=== PATIENT | female | born 1960 | race Caucasian/White ===

== ENCOUNTER → 2019-02-03 | Outpatient (CLI) | payer BC ==
[~2019-02-03] MED LIST: ALBU90OI61; ATOM40; CEPH500 PO; CITA20 PO; CRUTCH3 USE; CYCL10 PO; FEXO180; FLUC150A PO; FLUO20; LEVSOD100 PO; LORA1 PO; NAPR500 PO; NAPR550 PO; OXYACE5T PO; OXYC10ER; RXCYCL10 PO; RXLORA1 PO; RXNAPNA550 PO; STATIN; TRAM50 PO; TRAZ100
[2019-02-07 16:07] LABS: HPV 16 Negative (Negative); HPV 18 Negative (Negative); HPV OTHER HR TYPES Negative (Negative)
== END | disposition home or self-care (01) ==
LOC: LAB SHORT 16:08 → LAB 16:08
PROVIDERS: Internal Medicine
DX: Z01.419 Encounter for gynecological examination (general) (routine) without abnormal findings (principal); Z12.4 Encounter for screening for malignant neoplasm of cervix
CPT/HCPCS: 87624; G0145

== ENCOUNTER 2020-10-22 17:29 | Emergency (ER) | payer OTHER ==
[~2020-10-22] VITALS: Ht 157.5 cm; Wt 54.9 kg
[2020-10-22] MEDS ORDERED: Prednisone20 MG PO (19:25)
[2020-10-22] MEDS ORDERED: ALBU90OI INH (19:25)
== END 2020-10-22 19:57 | disposition home or self-care (01) ==
LOC: ER 17:29
DX: J44.1 Chronic obstructive pulmonary disease with (acute) exacerbation (principal); F17.210 Nicotine dependence, cigarettes, uncomplicated; Z88.2 Allergy status to sulfonamides; Z88.8 Allergy status to other drugs, medicaments and biological substances
CPT/HCPCS: 71046; 94640; 99283-25; J7512

== ENCOUNTER → 2020-11-19 | Outpatient (CLI) | payer OTHER ==
[~2020-11-19] MED LIST changes: +ALBU90OI INH; +Prednisone20 MG PO
== END ==
LOC: LAB SHORT 17:43 → LAB EV 17:43
PROVIDERS: Family Medicine
DX: F11.11 Opioid abuse, in remission (principal); Z79.899 Other long term (current) drug therapy
CPT/HCPCS: G0480

== ENCOUNTER → 2020-11-22 | Outpatient (CLI) | payer OTHER | END | disposition home or self-care (01) | LOC: LAB EV 17:04 → LAB SHORT 17:04 | PROVIDERS: Family Medicine | DX: Z51.81 Encounter for therapeutic drug level monitoring (principal); Z79.899 Other long term (current) drug therapy | CPT/HCPCS: G0480 ==

== ENCOUNTER 2021-09-11 12:36 | Day surgery (SDC) | payer OTHER ==
[~2021-09-11] VITALS: Ht 157.5 cm; Wt 116.6 kg
[~2021-09-11 12:36] MED LIST changes: +AMLO5 PO; +ATOM60 PO; +BECL25NI; +FLONASE SENSIM5.9 M1 NS; +LOSA25 PO; +OMEP20ER PO; +SUBOXONE 8 MG-1 EACH SL; +VISBIOME 112.51 EACH PO
--- NOTE | 2021-09-11 14:10 | NUR ---
09/11/21 1410 Bimal Fernandez PATIENT UP TO BATHROOM WITH SBA WITH NO COMPLICATIONS
== END 2021-09-11 14:17 | disposition home or self-care (01) ==
LOC: ORSCSDS 12:36
PROVIDERS: Internal Medicine Gastroenterology
PROC: 0DJ08ZZ Inspection of Upper Intestinal Tract, Via Natural or Artificial Opening Endoscopic (ICD-10-PCS; principal; 2021-09-11 13:45)
DX: R13.10 Dysphagia, unspecified (principal); K44.9 Diaphragmatic hernia without obstruction or gangrene; K22.2 Esophageal obstruction; B19.20 Unspecified viral hepatitis C without hepatic coma; F17.210 Nicotine dependence, cigarettes, uncomplicated; Z79.899 Other long term (current) drug therapy
CPT/HCPCS: J2704; J7120

== ENCOUNTER 2021-12-22 21:48 | Observation (INO) | payer OTHER ==
[~2021-12-22] VITALS: Ht 157.5 cm; Wt 53.1 kg
[~2021-12-22 21:48] MED LIST changes: +NARCAN4 M1
[2021-12-22 23:23] LABS: BASOPHILS ABSOLUTE AUTO 0.03 K/mm3 (0.00-0.23); BASOPHILS PERCENT AUTO 1 % (0-2); EOSINOPHILS ABSOLUTE AUTO 0.22 K/mm3 (0.00-0.68); EOSINOPHILS PERCENT AUTO 5 % (0-6); Hemoglobin 13.2 g/dL (11.5-16.0); IMMATURE GRAN ABSOLUTE AUTO 0.03 K/mm3 (0.00-0.10); IMMATURE GRAN PERCENT AUTO 1 % (0-1); LYMPHOCYTES ABSOLUTE AUTO 1.36 K/mm3 (0.84-5.20); LYMPHOCYTES PERCENT AUTO 28 % (21-46); MONOCYTES PERCENT AUTO 10 % (4-13); Mean Corpuscular HGB Conc 32.2 g/dL (31.5-36.5); Mean Corpuscular Volume 87 fL (80-100); Mean Platelet Volume 8.2 fL (9.1-12.4); NEUTROPHILS ABSOLUTE AUTO 2.72 K/mm3 (1.96-9.15); NEUTROPHILS PERCENT AUTO 56 % (41-73); Platelet Count 374 K/mm3 (150-400); RDW Coefficient Variation 13.6 % (11.7-14.2); RDW Standard Deviation 43.6 fL (35.1-46.3); Red Blood Cell Count 4.72 M/mm3 (3.80-5.20); White Blood Cell Count 4.86 K/mm3 (4.00-11.30)
[2021-12-22 23:43] LABS: Alanine Aminotransfer (ALT/SGP 37 U/L (12-78); Albumin, Blood 3.1 g/dL (3.4-5.0); Albumin/Globulin Ratio 0.6 (0.8-1.8); Alk Phos 108 U/L (50-136); Anion Gap 5 mmol/L (6-16); Aspartate Aminotrans (AST/SGOT 30 U/L (12-37); Bilirubin, Total 0.2 mg/dL (0.1-1.0); Blood Urea Nitrogen 18 mg/dL (8-24); Bun/Creatinine Ratio 20.1 (12.0-20.0); CO2, Blood 27 mmol/L (21-32); Calcium, Blood 8.8 mg/dL (8.5-10.1); Chloride, Blood 105 mmol/L (98-108); Globulin, Blood 4.9 g/dL (2.2-4.0); Glomerular Filtration Rate >60 (60-); Glucose, Blood 103 mg/dL (70-99); Potassium, Blood 4.6 mmol/L (3.5-5.5); Sodium, Blood 137 mmol/L (136-145)
[2021-12-23 02:16] LABS: Influenza A, PCR NEGATIVE (NEGATIVE); Influenza B, PCR NEGATIVE (NEGATIVE); Resp Syncytial Virus, PCR NEGATIVE (NEGATIVE); SARS-Cov-2 (COVID-19) PCR, MMC NEGATIVE (NEGATIVE)
--- NOTE | 2021-12-23 06:28 | NUR ---
PT ARRIVED TO FLOOR FROM ER. PT A/O, DENIES DIZZINESS. ABD DISTENDED, GUARDED TO PALP. PT REP PAIN IN UPPER ABD, HERNIA NOTED, FIRM TO PALP. RESP E/O, SCATTERED WHEEZING NOTED, PT DENIES SOB. PT REP DAILY IV HEROIN USER, REP PAST USED 2/. PT ORIENTED TO ROOM/CALL LIGHT AND NPO STATUS. WILL MONITOR AND REP TO DAY RN.
--- NOTE | 2021-12-23 07:26 | NUR ---
PT SLEEPING IN BED, RESP E/U, NO DISTRESS NOTED. REPORT GIVEN TO HUMAIRA CABAN.
[2021-12-23] MEDS ORDERED: HYDR1TAB94 PO (16:27)
--- NOTE | 2021-12-23 16:55 | NUR ---
DISCHARGE SUMMARY POD0 HERNIA REPAIR, A/O X4, VSS, TOLERATING DIET, AMBULATING INDEPENDENTLYL, PAIN MANAGED c ORAL PAIN MEDICATIONS. DISCUSSED DISCHARGE INFORMATION WITH PT, ANSWERED ALL QUESTIONS AND EXPLAINED POST OP CARE TO HER SATISFACTION. PT HAD NO QUESTIONS, IV ACCESS REMOVED AND NO OTHER IV ACCESS DEVICES IN PLACE. PT CHANGED INTO HER REGULAR CLOTHES AND WAS ESCORTED OUT VIA WC TO BE PICKED UP BY FAMILY. NOTHING FOLLOWS.
--- NOTE | 2021-12-26 10:41 | NUR ---
12/26/21 1041 Heaven Mcbride VERIFICATIONS: EDIT CHART.
== END 2021-12-23 16:57 | disposition home or self-care (01) ==
LOC: ER 21:48 → SURS 21:49 → ERHOLD 21:49 → ER 12-23 01:16 → SURS 12-23 06:04
PROVIDERS: Emergency Medicine; Physician Assistant; ADMIT Surgery
PROC: 0WUF0JZ Supplement Abdominal Wall with Synthetic Substitute, Open Approach (ICD-10-PCS; principal; 2021-12-23 12:00)
DX: K43.6 Other and unspecified ventral hernia with obstruction, without gangrene (principal); F19.10 Other psychoactive substance abuse, uncomplicated; F17.200 Nicotine dependence, unspecified, uncomplicated; K21.9 Gastro-esophageal reflux disease without esophagitis; E03.9 Hypothyroidism, unspecified; I10 Essential (primary) hypertension; R60.1 Generalized edema; Z88.8 Allergy status to other drugs, medicaments and biological substances; Z91.040 Latex allergy status; Z20.822 Contact with and (suspected) exposure to COVID-19
CPT/HCPCS: 0241U; 36415; 74177; 80053; 83605; 85025; 96374; 96375; 99285-25; A9270; C1781; G0378; J0690; J1100; J1170; J2250; J2405; J2704; J3010; J7030; Q9967

== ENCOUNTER 2022-04-30 07:16 | Day surgery (SDC) | payer OTHER ==
[~2022-04-30] VITALS: Ht 157.5 cm; Wt 57.1 kg
[~2022-04-30 07:16] MED LIST changes: +FLONASE SENSIM5.9 M1; +HYDR1TAB94 PO; +INCRUSE ELLIPTA INH
[2022-04-30] MEDS ORDERED: SUBOXONE 12 MG1 EACH (08:05)
== END 2022-04-30 09:59 | disposition home or self-care (01) ==
LOC: ORSCSDS 07:16
PROVIDERS: Surgery
PROC: 0DBN8ZX Excision of Sigmoid Colon, Via Natural or Artificial Opening Endoscopic, Diagnostic (ICD-10-PCS; principal; 2022-04-30 08:45)
PROC: 0DBC8ZX Excision of Ileocecal Valve, Via Natural or Artificial Opening Endoscopic, Diagnostic (ICD-10-PCS; principal; 2022-04-30 08:45)
DX: Z12.11 Encounter for screening for malignant neoplasm of colon (principal); Z86.010 Personal history of colon polyps; K63.5 Polyp of colon; D12.0 Benign neoplasm of cecum; J44.9 Chronic obstructive pulmonary disease, unspecified; B19.20 Unspecified viral hepatitis C without hepatic coma; E78.5 Hyperlipidemia, unspecified; I10 Essential (primary) hypertension; F43.10 Post-traumatic stress disorder, unspecified; R56.9 Unspecified convulsions; E07.9 Disorder of thyroid, unspecified; K59.09 Other constipation; Z79.899 Other long term (current) drug therapy
CPT/HCPCS: 88305; J2704; J7120

== ENCOUNTER 2023-02-14 16:47 | Inpatient (IN) | payer OTHER ==
[~2023-02-14] VITALS: Ht 157.5 cm; Wt 66.4 kg
[~2023-02-14 16:47] MED LIST changes: +SUBOXONE 12 MG1 EACH
[2023-02-14 18:16] LABS: BASOPHILS ABSOLUTE AUTO 0.05 K/mm3 (0.00-0.23); BASOPHILS PERCENT AUTO 0 % (0-2); EOSINOPHILS ABSOLUTE AUTO 0.05 K/mm3 (0.00-0.68); EOSINOPHILS PERCENT AUTO 0 % (0-6); Hemoglobin 12.7 g/dL (11.5-16.0); IMMATURE GRAN ABSOLUTE AUTO 0.13 K/mm3 (0.00-0.10); IMMATURE GRAN PERCENT AUTO 1 % (0-1); LYMPHOCYTES ABSOLUTE AUTO 0.56 K/mm3 (0.84-5.20); LYMPHOCYTES PERCENT AUTO 2 % (21-46); MONOCYTES ABSOLUTE AUTO 0.97 K/mm3 (0.16-1.47); MONOCYTES PERCENT AUTO 4 % (4-13); Mean Corpuscular HGB 28.6 pg (26.0-34.0); Mean Corpuscular HGB Conc 32.6 g/dL (31.5-36.5); Mean Corpuscular Volume 88 fL (80-100); Mean Platelet Volume 8.9 fL (9.1-12.4); NEUTROPHILS ABSOLUTE AUTO 23.74 K/mm3 (1.96-9.15); NEUTROPHILS PERCENT AUTO 93 % (41-73); Platelet Count 262 K/mm3 (150-400); RDW Coefficient Variation 13.3 % (11.7-14.2); RDW Standard Deviation 42.9 fL (35.1-46.3); Red Blood Cell Count 4.44 M/mm3 (3.80-5.20)
[2023-02-14 18:36] LABS: Albumin, Blood 3.3 g/dL (3.4-5.0); Albumin/Globulin Ratio 0.8 (0.8-1.8); Bilirubin, Total 0.4 mg/dL (0.1-1.0); Bun/Creatinine Ratio 25.2 (12.0-20.0); Calcium, Blood 8.9 mg/dL (8.5-10.1); Creatinine, Blood 0.75 mg/dL (0.40-1.00); Globulin, Blood 4.2 g/dL (2.2-4.0); Potassium, Blood 4.1 mmol/L (3.5-5.5); Total Protein, Blood 7.5 g/dL (6.4-8.2)
[2023-02-14 19:24] LABS: Source, Urine Straight Cath
[2023-02-14 19:27] LABS: Appearance, Urine Clear (Clear); Bilirubin, Urine Neg (Neg); Blood, Urine 1+ (Neg); Color, Urine Yellow (P-Yellow); Glucose Qualitative, Urine Neg (Neg); Ketones, Urine Neg (Neg); Leukocyte Esterase, Urine Neg (Neg); Nitrite, Urine Neg (Neg); Protein, Urine 1+ (Neg); Urobilinogen, Urine NORM (Normal)
[2023-02-14 19:40] LABS: U Amphetamine Screen DETECTED; U Barbituate Screen Not Detected; U Benzodiazapine Screen Not Detected; U Buprenorphine Screen Not Detected; U Cannabinoids Screen Not Detected; U Cocaine Screen Not Detected; U Methadone Screen Not Detected; U Methamphetamine Screen DETECTED; U Opiates Screen Not Detected; U Oxycodone Screen Not Detected; U Phencyclidine Screen Not Detected; U Propoxyphene Screen Not Detected
[2023-02-14 19:42] LABS: Bacteria Few /hpf; Squamous Epithelial Cells Few /hpf (Few); White Blood Cells, Urine 0-2 /hpf (0-5)
[2023-02-14 19:53] LABS: Influenza A, PCR NEGATIVE (NEGATIVE); Influenza B, PCR NEGATIVE (NEGATIVE); Resp Syncytial Virus, PCR NEGATIVE (NEGATIVE); SARS-Cov-2 (COVID-19) PCR, MMC NEGATIVE (NEGATIVE)
[2023-02-15 04:55] LABS: BASOPHILS ABSOLUTE AUTO 0.03 K/mm3 (0.00-0.23); BASOPHILS PERCENT AUTO 0 % (0-2); EOSINOPHILS ABSOLUTE AUTO 0.02 K/mm3 (0.00-0.68); EOSINOPHILS PERCENT AUTO 0 % (0-6); Hematocrit 33.8 % (33.0-51.0); IMMATURE GRAN ABSOLUTE AUTO 0.08 K/mm3 (0.00-0.10); IMMATURE GRAN PERCENT AUTO 0 % (0-1); LYMPHOCYTES ABSOLUTE AUTO 1.23 K/mm3 (0.84-5.20); LYMPHOCYTES PERCENT AUTO 7 % (21-46); MONOCYTES ABSOLUTE AUTO 0.75 K/mm3 (0.16-1.47); MONOCYTES PERCENT AUTO 4 % (4-13); Mean Corpuscular HGB 28.8 pg (26.0-34.0); Mean Corpuscular HGB Conc 32.5 g/dL (31.5-36.5); Mean Corpuscular Volume 89 fL (80-100); NEUTROPHILS ABSOLUTE AUTO 16.67 K/mm3 (1.96-9.15); NEUTROPHILS PERCENT AUTO 89 % (41-73); Platelet Count 231 K/mm3 (150-400); RDW Coefficient Variation 13.5 % (11.7-14.2); RDW Standard Deviation 43.5 fL (35.1-46.3); Red Blood Cell Count 3.82 M/mm3 (3.80-5.20); White Blood Cell Count 18.78 K/mm3 (4.00-11.30)
--- NOTE | 2023-02-15 05:00 | NUR ---
SUMMARY: PATIENT ADMITTED OVERNIGHT WITH PNEUMONIA. PATIENT AOX4 BUT PRETTY DROWSY. VSS. 2L NS BOLUS GIVEN UPON ARRIVAL TO UNIT. VITALS CHECKED AFTER. HR IMPROVED AFTER BOLUS. PATIENT AMBULATED TO RESTROOM INDEPENDENTLY. O2 STABLE ON RA. NO REPORTS OF PAIN. CALL LIGHT IN REACH.
[2023-02-15 05:28] LABS: Albumin, Blood 2.6 g/dL (3.4-5.0); Albumin/Globulin Ratio 0.7 (0.8-1.8); Bilirubin, Total 0.5 mg/dL (0.1-1.0); Bun/Creatinine Ratio 19.4 (12.0-20.0); Calcium, Blood 8.4 mg/dL (8.5-10.1); Creatinine, Blood 0.72 mg/dL (0.40-1.00); Globulin, Blood 3.8 g/dL (2.2-4.0); Total Protein, Blood 6.4 g/dL (6.4-8.2)
--- NOTE | 2023-02-15 18:12 | NUR ---
SHIFT SUMMARY- PT IS A/O, PLESANT AND COOPERATIVE. SHE SLEPT FOR MOST OF THIS SHIFT. EATING AND DRINKING WELL. ECHO WAS DONE THIS SHIFT. HER BED IS IN THE LOW POSITION AND CALL LIGHT IS WITHIN REACH.
--- NOTE | 2023-02-16 06:27 | NUR ---
Shift Summary Pt very lethargic and somnolent this shift. Day shift report pt slept throughout the whole day, and pt slept throughout the night tonight. She does wake up for care and is AOx4 although still tired and lethargic. Somnolence likely related to recent drug use, see tox screen. VSS, pleasant and cooperative.
--- NOTE | 2023-02-16 10:09 | NUR ---
NOTE AWAKENS ESILY. DENIED DISCOMFORT. VOICE ROUGH, GRAVILY WITH MILD STRAIN WITH TALKING. SPEACH VERY FAST. FAST MOVING. SHE ACCIDENTLY PULLED OUT HER LEFT UE WITH CANNULA INTAct. NO BLEEDING AT SITE NOTED. RESTARTED LEFT HAND. VSS. CURRENTLY TAKING A SHOWER. REPORTED, BY ORAL HYGIENIST, THAT SHE HAS THRUSH. CONTINUE POC.
[2023-02-16 11:06] LABS: BASOPHILS ABSOLUTE AUTO 0.04 K/mm3 (0.00-0.23); BASOPHILS PERCENT AUTO 1 % (0-2); EOSINOPHILS ABSOLUTE AUTO 0.11 K/mm3 (0.00-0.68); EOSINOPHILS PERCENT AUTO 1 % (0-6); Hematocrit 39.8 % (33.0-51.0); Hemoglobin 13.2 g/dL (11.5-16.0); IMMATURE GRAN ABSOLUTE AUTO 0.03 K/mm3 (0.00-0.10); IMMATURE GRAN PERCENT AUTO 0 % (0-1); LYMPHOCYTES ABSOLUTE AUTO 0.94 K/mm3 (0.84-5.20); LYMPHOCYTES PERCENT AUTO 12 % (21-46); MONOCYTES ABSOLUTE AUTO 0.52 K/mm3 (0.16-1.47); MONOCYTES PERCENT AUTO 7 % (4-13); Mean Corpuscular HGB 28.8 pg (26.0-34.0); Mean Corpuscular HGB Conc 33.2 g/dL (31.5-36.5); Mean Corpuscular Volume 87 fL (80-100); NEUTROPHILS PERCENT AUTO 79 % (41-73); Platelet Count 272 K/mm3 (150-400); RDW Coefficient Variation 13.3 % (11.7-14.2); RDW Standard Deviation 42.3 fL (35.1-46.3); Red Blood Cell Count 4.59 M/mm3 (3.80-5.20); White Blood Cell Count 7.94 K/mm3 (4.00-11.30)
[2023-02-16 11:22] LABS: Albumin/Globulin Ratio 0.6 (0.8-1.8); Bilirubin, Total 0.4 mg/dL (0.1-1.0); Bun/Creatinine Ratio 19.9 (12.0-20.0); Calcium, Blood 9.6 mg/dL (8.5-10.1); Creatinine, Blood 0.65 mg/dL (0.40-1.00); Globulin, Blood 4.8 g/dL (2.2-4.0); Potassium, Blood 3.8 mmol/L (3.5-5.5); Total Protein, Blood 7.8 g/dL (6.4-8.2)
--- NOTE | 2023-02-16 14:29 | NUR ---
NOTE PT UP[ IN HALLWAY WALKING SHORT DISTANCES. TOLERATED WELL. OCCASIONAL COUGH. VOICE STILL SOFT AND WEAK. VSS. STARTED ON ORAL NYSTATIN FOR OBSERVED THRUSH. CONTINUE POC.
--- NOTE | 2023-02-17 05:22 | NUR ---
Shift Summary Pt AOx4, independent in room. Voice is rough and gravily. No c/o pain or nausea. Slept well t/o the night. VSS.
[2023-02-17] MEDS ORDERED: NYSTATIN100000 U10 MT (12:33)
[2023-02-17] MEDS ORDERED: Nicoderm Cq1 EAC1 TOP (12:33)
[2023-02-17] MEDS ORDERED: CEFP200 PO (12:34)
[2023-02-17] MEDS ORDERED: VISBIOME 112.51 EACH PO (12:34)
--- NOTE | 2023-02-17 14:02 | NUR ---
DISCHARGE NOTE PT DISCHARGED HOME VIA W/C ACCOMPANIED BY BODY AND FRAME MAN. IV REMOVED FROM LEFT HAND. PRESSURE DRESSING APPLIED. PERSCRIPTIONS FAXED TO [facility]. CONTINUE POC.
== END 2023-02-17 13:45 | disposition home or self-care (01) | DRG 871 ==
LOC: ER 16:47 → MEDS 21:03
PROVIDERS: Emergency Medicine; Family Medicine; Hospitalist; ADMIT Family Medicine
DX: A41.9 Sepsis, unspecified organism (principal); J18.9 Pneumonia, unspecified organism; K83.1 Obstruction of bile duct; I10 Essential (primary) hypertension; E03.9 Hypothyroidism, unspecified; I51.7 Cardiomegaly; F15.10 Other stimulant abuse, uncomplicated; K21.9 Gastro-esophageal reflux disease without esophagitis; K13.79 Other lesions of oral mucosa; J44.9 Chronic obstructive pulmonary disease, unspecified; J84.10 Pulmonary fibrosis, unspecified; R79.89 Other specified abnormal findings of blood chemistry; F17.210 Nicotine dependence, cigarettes, uncomplicated; Z20.822 Contact with and (suspected) exposure to COVID-19; Z88.2 Allergy status to sulfonamides; Z91.040 Latex allergy status; Z88.8 Allergy status to other drugs, medicaments and biological substances; Z79.899 Other long term (current) drug therapy; Z90.49 Acquired absence of other specified parts of digestive tract; Z90.710 Acquired absence of both cervix and uterus; Z98.890 Other specified postprocedural states; Z28.21 Immunization not carried out because of patient refusal; Z79.890 Hormone replacement therapy
CPT/HCPCS: 0241U; 36415; 71045; 74177; 80053; 81001; 83605; 83690; 85025; 87040; 93306; 94760; 96361; 96374-59; 96375; 99285-25; A9270; J0456; J0696; J1650; J7030; J7050; Q9967

== ENCOUNTER 2023-10-27 14:01 | Emergency (ER) | payer OTHER ==
[~2023-10-27] VITALS: Ht 157.5 cm; Wt 63.5 kg
[~2023-10-27 14:01] MED LIST changes: +CEFP200 PO; +NYSTATIN100000 U10 MT; +Nicoderm Cq1 EAC1 TOP
[2023-10-27] MEDS ORDERED: AMLODIPINE BESY10 MG PO (15:06)
[2023-10-27] MEDS ORDERED: Ventolin/Prove6.7 GM INH (15:06)
[2023-10-27] MEDS ORDERED: BUPRENORPHIN-N1 EAC1 SL (15:07)
[2023-10-27] MEDS ORDERED: SYNTHROID100 M14 PO (15:07)
[2023-10-27 15:14] LABS: BASOPHILS ABSOLUTE AUTO 0.01 K/mm3 (0.00-0.23); BASOPHILS PERCENT AUTO 0 % (0-2); EOSINOPHILS PERCENT AUTO 0 % (0-6); Hematocrit 24.4 % (33.0-51.0); Hemoglobin 7.3 g/dL (11.5-16.0); Mean Corpuscular HGB 23.5 pg (26.0-34.0); Mean Corpuscular HGB Conc 29.9 g/dL (31.5-36.5); Mean Corpuscular Volume 79 fL (80-100); Mean Platelet Volume 9.4 fL (9.1-12.4); NRBC ABSOLUTE 0.02 K/mm3 (0.00-0.02); NRBC Auto 0.4 /100 WBC (0.0-0.2); Platelet Count 313 K/mm3 (150-400); RDW Coefficient Variation 15.9 % (11.7-14.2); Red Blood Cell Count 3.11 M/mm3 (3.80-5.20); White Blood Cell Count 4.98 K/mm3 (4.00-11.30)
[2023-10-27 15:17] LABS: IMMATURE GRAN ABSOLUTE AUTO 0.03 K/mm3 (0.00-0.10); IMMATURE GRAN PERCENT AUTO 1 % (0-1); LYMPHOCYTES ABSOLUTE AUTO 0.69 K/mm3 (0.84-5.20); LYMPHOCYTES PERCENT AUTO 14 % (21-46); MONOCYTES ABSOLUTE AUTO 0.72 K/mm3 (0.16-1.47); MONOCYTES PERCENT AUTO 15 % (4-13); NEUTROPHILS ABSOLUTE AUTO 3.53 K/mm3 (1.96-9.15); NEUTROPHILS PERCENT AUTO 71 % (41-73)
[2023-10-27 15:42] LABS: Albumin, Blood 3.2 g/dL (3.4-5.0); Albumin/Globulin Ratio 0.8 (0.8-1.8); Bilirubin, Total 0.2 mg/dL (0.1-1.0); Bun/Creatinine Ratio 22.2 (12.0-20.0); Calcium, Blood 8.6 mg/dL (8.5-10.1); Creatinine, Blood 1.08 mg/dL (0.40-1.00); Globulin, Blood 4.2 g/dL (2.2-4.0); Potassium, Blood 4.2 mmol/L (3.5-5.5); Total Protein, Blood 7.4 g/dL (6.4-8.2)
[2023-10-27 22:45] VITALS: BP 127/73
== END 2023-10-27 23:41 | disposition short-term general hospital (02) ==
LOC: ER 14:01
PROVIDERS: Physician Assistant
DX: D50.0 Iron deficiency anemia secondary to blood loss (chronic) (principal); K92.2 Gastrointestinal hemorrhage, unspecified; E03.9 Hypothyroidism, unspecified; J44.9 Chronic obstructive pulmonary disease, unspecified; I10 Essential (primary) hypertension; F17.210 Nicotine dependence, cigarettes, uncomplicated; Z88.2 Allergy status to sulfonamides; Z88.8 Allergy status to other drugs, medicaments and biological substances; Z91.040 Latex allergy status; Z79.890 Hormone replacement therapy; Z79.899 Other long term (current) drug therapy
CPT/HCPCS: 36430; 80053; 85025; 86850; 86900; 86901; 86920; 96365; 96366; 96375; 96376; 99285-25; C9113; J0456; J3010; J7030; J7050; P9016

== ENCOUNTER 2024-05-15 08:16 | Inpatient (IN) | payer OTHER ==
[~2024-05-15] VITALS: Ht 157.5 cm; Wt 72.5 kg
[~2024-05-15 08:16] MED LIST changes: +ACET325 PO; +AMLODIPINE BESY10 MG PO; +ASPI81CH PO; +ATOM40 PO; +BUPRENORPHIN-N1 EAC1 SL; +DULERA 100 MCG/13 GM INH; +ENTRESTO 24 MG1 EACH PO; +FURO40 PO; +JARDIANCE10 MG PO; +LEVSOD112 PO; +METO25ER PO; +SPIR25 PO; +SYNTHROID100 M14 PO
[2024-05-15] MEDS ORDERED: Albuterol 2.5 MG/3 ML VIAL INH SCH (08:25)
[2024-05-15] MEDS ORDERED: Ondansetron HCl 2 MG / ML 2ML Vial IV ONE (08:25)
[2024-05-15 08:50] LABS: BASOPHILS ABSOLUTE AUTO 0.04 K/mm3 (0.00-0.23); BASOPHILS PERCENT AUTO 1 % (0-2); EOSINOPHILS PERCENT AUTO 1 % (0-6); Hematocrit 28.4 % (33.0-51.0); Hemoglobin 8.4 g/dL (11.5-16.0); IMMATURE GRAN ABSOLUTE AUTO 0.04 K/mm3 (0.00-0.10); IMMATURE GRAN PERCENT AUTO 1 % (0-1); LYMPHOCYTES ABSOLUTE AUTO 1.67 K/mm3 (0.84-5.20); LYMPHOCYTES PERCENT AUTO 19 % (21-46); MONOCYTES ABSOLUTE AUTO 0.74 K/mm3 (0.16-1.47); MONOCYTES PERCENT AUTO 8 % (4-13); Mean Corpuscular HGB 23.5 pg (26.0-34.0); Mean Corpuscular HGB Conc 29.6 g/dL (31.5-36.5); Mean Corpuscular Volume 79 fL (80-100); Mean Platelet Volume 8.7 fL (9.1-12.4); NEUTROPHILS ABSOLUTE AUTO 6.17 K/mm3 (1.96-9.15); NEUTROPHILS PERCENT AUTO 70 % (41-73); Platelet Count 385 K/mm3 (150-400); RDW Coefficient Variation 21.2 % (11.7-14.2); RDW Standard Deviation 61.1 fL (35.1-46.3); Red Blood Cell Count 3.58 M/mm3 (3.80-5.20); White Blood Cell Count 8.76 K/mm3 (4.00-11.30)
[2024-05-15 09:08] LABS: Albumin/Globulin Ratio 0.8 (0.8-1.8); Bilirubin, Total 0.4 mg/dL (0.1-1.0); Bun/Creatinine Ratio 19.6 (12.0-20.0); Calcium, Blood 8.3 mg/dL (8.5-10.1); Creatinine, Blood 0.97 mg/dL (0.40-1.00); Globulin, Blood 3.8 g/dL (2.2-4.0); Potassium, Blood 4.4 mmol/L (3.5-5.5); Total Protein, Blood 6.8 g/dL (6.4-8.2)
[2024-05-15 09:20] LABS: Influenza A, PCR NEGATIVE (NEGATIVE); Influenza B, PCR NEGATIVE (NEGATIVE); Resp Syncytial Virus, PCR NEGATIVE (NEGATIVE); SARS-Cov-2 (COVID-19) PCR, MMC NEGATIVE (NEGATIVE)
[2024-05-15] MEDS ORDERED: ATOR40TA PO (09:26)
[2024-05-15] MEDS ORDERED: Furosemide 10 MG/ML 4ML Vial IV ONE (10:30)
[2024-05-15] MEDS ORDERED: Ketorolac Tromethamine 15mg Vial IV ONE (11:25)
[2024-05-15 11:39] LABS: Source, Urine Clean Catch
[2024-05-15 11:41] LABS: Bilirubin, Urine Neg (Neg); Blood, Urine Neg (Neg); Glucose Qualitative, Urine Neg (Neg); Ketones, Urine Neg (Neg); Leukocyte Esterase, Urine Neg (Neg); Nitrite, Urine Neg (Neg); Protein, Urine 2+ (Neg); Urobilinogen, Urine NORM (Normal)
[2024-05-15 12:50] LABS: Appearance, Urine Hazy (Clear); Color, Urine Yellow (P-Yellow)
[2024-05-15 12:51] LABS: Bacteria Not Seen /hpf; Red Blood Cells, Urine Not Seen /hpf (0-2); Squamous Epithelial Cells Rare /hpf (Few); White Blood Cells, Urine Not Seen /hpf (0-5)
[2024-05-15] MEDS ORDERED: Ondansetron 4 MG TAB PO PRN (14:30)
[2024-05-15] MEDS ORDERED: Mometasone/Formoterol MDI 100/5 mcg 13 GM INH SCH (14:45)
[2024-05-15 16:06] VITALS: BP 122/87
[2024-05-15] MEDS ORDERED: Furosemide 10 MG / ML 2ML Vial IV SCH (18:00)
--- NOTE | 2024-05-15 18:30 | NUR ---
LATE ENTRY PT ADMIT FROM ER. ALERT AND ORIENTED. DENIES CHEST PAIN ENDORSES ABDOM PAIN. INDEPENDENT TO THE BATHROOM. ADMIT WITH 2L NC
[2024-05-15 19:50] VITALS: BP 97/59
[2024-05-15 19:53] VITALS: BP 108/77
[2024-05-15] MEDS ORDERED: Sacubitril/Valsartan 24 MG-26 MG Tab PO SCH (21:00)
[2024-05-15] MEDS ORDERED: Famotidine 20 MG Tab PO SCH (21:00)
[2024-05-15 21:17] LABS: U Amphetamine Screen DETECTED; U Barbituate Screen Not Detected; U Benzodiazapine Screen Not Detected; U Buprenorphine Screen Not Detected; U Cannabinoids Screen Not Detected; U Cocaine Screen Not Detected; U Methadone Screen Not Detected; U Methamphetamine Screen DETECTED; U Opiates Screen Not Detected; U Oxycodone Screen Not Detected; U Phencyclidine Screen Not Detected
--- NOTE | 2024-05-16 04:42 | NUR ---
NOC SHIFT SUMMARY PT HAS BEEN DROWSY THIS SHIFT AND HAS SLEPT FOR SEVERAL HOURS. AWAKENS TO VOICE. URINE SAMPLE SENT OFF BUT STOOL SAMPLE COLLECTION STILL NEEDED. PLACED ON CONTACT ENTERIC PRECAUTIONS PER PROTOCOL UNTIL CDIFF CAN BE RULED OUT. HEART FAILURE EDUCATION GIVEN. PT REPORTS HER BREATHING FEELS BETTER.
[2024-05-16 05:28] LABS: BASOPHILS ABSOLUTE AUTO 0.07 K/mm3 (0.00-0.23); BASOPHILS PERCENT AUTO 1 % (0-2); EOSINOPHILS PERCENT AUTO 3 % (0-6); Hematocrit 27.7 % (33.0-51.0); Hemoglobin 8.3 g/dL (11.5-16.0); IMMATURE GRAN ABSOLUTE AUTO 0.08 K/mm3 (0.00-0.10); IMMATURE GRAN PERCENT AUTO 1 % (0-1); LYMPHOCYTES PERCENT AUTO 19 % (21-46); MONOCYTES ABSOLUTE AUTO 0.82 K/mm3 (0.16-1.47); MONOCYTES PERCENT AUTO 10 % (4-13); Mean Corpuscular HGB 23.6 pg (26.0-34.0); Mean Corpuscular Volume 79 fL (80-100); Mean Platelet Volume 8.7 fL (9.1-12.4); NEUTROPHILS ABSOLUTE AUTO 5.22 K/mm3 (1.96-9.15); NEUTROPHILS PERCENT AUTO 66 % (41-73); NRBC ABSOLUTE 0.03 K/mm3 (0.00-0.02); NRBC Auto 0.4 /100 WBC (0.0-0.2); Platelet Count 389 K/mm3 (150-400); RDW Coefficient Variation 21.2 % (11.7-14.2); RDW Standard Deviation 59.9 fL (35.1-46.3); Red Blood Cell Count 3.52 M/mm3 (3.80-5.20); White Blood Cell Count 7.89 K/mm3 (4.00-11.30)
[2024-05-16 05:45] VITALS: BP 107/64
[2024-05-16 05:57] LABS: Albumin, Blood 2.8 g/dL (3.4-5.0); Albumin/Globulin Ratio 0.7 (0.8-1.8); Bilirubin, Total 0.3 mg/dL (0.1-1.0); Bun/Creatinine Ratio 28.4 (12.0-20.0); Calcium, Blood 8.2 mg/dL (8.5-10.1); Creatinine, Blood 0.99 mg/dL (0.40-1.00); Globulin, Blood 3.8 g/dL (2.2-4.0); Magnesium, Blood 1.9 mg/dL (1.6-2.4); Potassium, Blood 4.3 mmol/L (3.5-5.5); Total Protein, Blood 6.6 g/dL (6.4-8.2)
[2024-05-16] MEDS ORDERED: Levothyroxine Sodium 0.112 MG Tab PO SCH (06:00)
[2024-05-16 08:19] VITALS: BP 116/85
[2024-05-16] MEDS ORDERED: Spironolactone 25 MG Tab PO SCH (09:00)
[2024-05-16] MEDS ORDERED: Metoprolol Succinate 25 MG TABCR PO SCH (09:00)
[2024-05-16] MEDS ORDERED: Empagliflozin 10 MG TAB PO SCH (09:00)
[2024-05-16] MEDS ORDERED: Enoxaparin 40 MG/0.4 ML SYR SC SCH (09:00)
[2024-05-16] MEDS ORDERED: Atomoxetine HCL 40 MG Cap PO SCH (09:00)
[2024-05-16] MEDS ORDERED: Aspirin 81 MG Chew PO SCH (09:00)
[2024-05-16] MEDS ORDERED: Albuterol 2.5 MG/3 ML VIAL INH PRN (13:30)
--- NOTE | 2024-05-16 15:55 | NUR ---
PT HAS DENIED HAVING ANY BM/DIARRHEA SINCE YESTERDAY. NO BM SINCE GI PANEL WAS ORDERED. DC'D GI PANEL PER PROTOCOL FOR NO BM IN 24 HOURS. PT ADVISED WE STILL NEED TO GET A STOOL SAMPLE TO CHECK FOR BLOOD IN STOOL. PT V/U. DC. ISOLATION PRECAUTIONS.
--- NOTE | 2024-05-16 18:24 | NUR ---
SHIFT SUMMARY: PT IS A/O X 4, IND IN ROOM, PLEASANT AND COOPERATIVE WITH CARE. PT REPORTS SHE ISURINATING WELL. NO BM THROUGHOUT THE DAY. C/O LUQ ABD PAIN TOLERABLE AND INTERMITTENT. PT ON 3 LPM VIA NC SATS ABOVE 90%.
[2024-05-16 20:16] VITALS: BP 95/62
[2024-05-17 03:25] VITALS: BP 100/67
--- NOTE | 2024-05-17 04:41 | NUR ---
SHIFT SUMMARY: ANSHU IS A&OX4. VSS, NO ACUTE EVENTS THIS SHIFT. SHE USED THE CPAP FOR SEVERAL HOURS, SWITCHING BACK TO 3LPM VIA NC. SHE IS TOLERATING PO INTAKE WELL, HAS DENIED THE NEED FOR PAIN MEDICATION, AND IS INDEPENDENT IN THE ROOM. SHE DENIES ANY DIFFICULTING VOIDING. SHE IS LYING IN BED WITH THE CALL LIGHT IN REACH. WILL GIVE REPORT TO DAY SHIFT RN.
[2024-05-17 05:09] LABS: BASOPHILS ABSOLUTE AUTO 0.07 K/mm3 (0.00-0.23); BASOPHILS PERCENT AUTO 1 % (0-2); EOSINOPHILS ABSOLUTE AUTO 0.31 K/mm3 (0.00-0.68); EOSINOPHILS PERCENT AUTO 4 % (0-6); Hematocrit 30.1 % (33.0-51.0); Hemoglobin 8.9 g/dL (11.5-16.0); IMMATURE GRAN ABSOLUTE AUTO 0.04 K/mm3 (0.00-0.10); IMMATURE GRAN PERCENT AUTO 1 % (0-1); LYMPHOCYTES ABSOLUTE AUTO 1.44 K/mm3 (0.84-5.20); LYMPHOCYTES PERCENT AUTO 19 % (21-46); MONOCYTES ABSOLUTE AUTO 0.77 K/mm3 (0.16-1.47); MONOCYTES PERCENT AUTO 10 % (4-13); Mean Corpuscular HGB 23.4 pg (26.0-34.0); Mean Corpuscular HGB Conc 29.6 g/dL (31.5-36.5); Mean Corpuscular Volume 79 fL (80-100); Mean Platelet Volume 8.9 fL (9.1-12.4); NEUTROPHILS ABSOLUTE AUTO 5.13 K/mm3 (1.96-9.15); NEUTROPHILS PERCENT AUTO 66 % (41-73); NRBC ABSOLUTE 0.02 K/mm3 (0.00-0.02); NRBC Auto 0.3 /100 WBC (0.0-0.2); Platelet Count 401 K/mm3 (150-400); RDW Coefficient Variation 20.9 % (11.7-14.2); Red Blood Cell Count 3.81 M/mm3 (3.80-5.20); White Blood Cell Count 7.76 K/mm3 (4.00-11.30)
[2024-05-17 05:43] LABS: Albumin, Blood 2.8 g/dL (3.4-5.0); Albumin/Globulin Ratio 0.7 (0.8-1.8); Bilirubin, Total 0.2 mg/dL (0.1-1.0); Calcium, Blood 8.7 mg/dL (8.5-10.1); Globulin, Blood 3.8 g/dL (2.2-4.0); Potassium, Blood 4.1 mmol/L (3.5-5.5); Total Protein, Blood 6.6 g/dL (6.4-8.2)
[2024-05-17] MEDS ORDERED: Ferrous Gluconate 325 MG Tablet PO SCH (09:00)
[2024-05-17 09:49] VITALS: BP 104/59
[2024-05-17] MEDS ORDERED: Docusate Sodium 100 MG Cap PO PRN (14:15)
[2024-05-17 15:00] VITALS: BP 94/66
--- NOTE | 2024-05-17 19:41 | NUR ---
SHIFT SUMMARY: PT IS A/O X 4 IND IN ROOM PLEASANT AND COOPERATIVE WITH CARE. PT HAS HAD SOFT BP'S THROUGHOUT THE DAY. IS ASYMPTOMATIC. HELD 1800 IV LASIX DUE TO SBP 94. PT REPORTS SHE IS VOIDING WELL. OXYGEN LEVEL DROPPED TO 89% WHEN OFF OF O2 TO SHOWER THIS MORNING. PT ON 3 LPM VIA NC. PT DENIED ABD PAIN TODAY. C/O CONSTIPATION. DOCUSATE ORDERED.
[2024-05-17 19:57] VITALS: BP 95/64
[2024-05-18 04:29] VITALS: BP 84/58
[2024-05-18 04:58] LABS: BASOPHILS ABSOLUTE AUTO 0.05 K/mm3 (0.00-0.23); BASOPHILS PERCENT AUTO 1 % (0-2); EOSINOPHILS ABSOLUTE AUTO 0.25 K/mm3 (0.00-0.68); EOSINOPHILS PERCENT AUTO 3 % (0-6); Hematocrit 29.8 % (33.0-51.0); Hemoglobin 8.9 g/dL (11.5-16.0); IMMATURE GRAN ABSOLUTE AUTO 0.03 K/mm3 (0.00-0.10); IMMATURE GRAN PERCENT AUTO 0 % (0-1); LYMPHOCYTES ABSOLUTE AUTO 1.45 K/mm3 (0.84-5.20); LYMPHOCYTES PERCENT AUTO 20 % (21-46); MONOCYTES ABSOLUTE AUTO 0.87 K/mm3 (0.16-1.47); MONOCYTES PERCENT AUTO 12 % (4-13); Mean Corpuscular HGB 23.4 pg (26.0-34.0); Mean Corpuscular HGB Conc 29.9 g/dL (31.5-36.5); Mean Corpuscular Volume 78 fL (80-100); Mean Platelet Volume 8.7 fL (9.1-12.4); NEUTROPHILS ABSOLUTE AUTO 4.66 K/mm3 (1.96-9.15); NEUTROPHILS PERCENT AUTO 64 % (41-73); Platelet Count 404 K/mm3 (150-400); RDW Coefficient Variation 20.7 % (11.7-14.2); RDW Standard Deviation 58.2 fL (35.1-46.3); Red Blood Cell Count 3.81 M/mm3 (3.80-5.20); White Blood Cell Count 7.31 K/mm3 (4.00-11.30)
--- NOTE | 2024-05-18 05:27 | NUR ---
SHIFT SUMMARY: ANSHU IS A&OX4. VS WITH BP TRENDING DOWN, CALLED AND DISCUSSED WITH HOSPITALIST WHO STATED WILL REVIEW CHART AND PLACE ORDERS APPROPRIATE. PT IS INDEPENDENT IN THE ROOM AND TOLERATING PO INTAKE WELL EXCEPT FOR ONE EPISODE OF STOMACH UPSET WHICH SHE STATED IMPROVED AFTER ADMINISTRATION OF ZOFRAN. MAINTAINING SATS ON 3L VIA NC. SHE IS LYING IN BED WITH THE CALL LIGHT IN REACH. WILL GIVE REPORT TO DAY SHIFT RN.
[2024-05-18 05:32] LABS: Albumin, Blood 2.8 g/dL (3.4-5.0); Albumin/Globulin Ratio 0.7 (0.8-1.8); Bilirubin, Total 0.3 mg/dL (0.1-1.0); Bun/Creatinine Ratio 24.2 (12.0-20.0); Calcium, Blood 8.7 mg/dL (8.5-10.1); Creatinine, Blood 0.95 mg/dL (0.40-1.00); Globulin, Blood 3.9 g/dL (2.2-4.0); Potassium, Blood 4.3 mmol/L (3.5-5.5); Total Protein, Blood 6.7 g/dL (6.4-8.2)
[2024-05-18 07:48] VITALS: BP 120/60
[2024-05-18] MEDS ORDERED: Famotidine 20 MG Tab PO SCH (09:00)
[2024-05-18] MEDS ORDERED: Midodrine 5 MG Tab PO SCH (09:00)
[2024-05-18 15:15] VITALS: BP 79/63
--- NOTE | 2024-05-18 16:43 | NUR ---
SHIFT SUMMARY Pt remains A&Ox3 this shift. VSS. Resp even nonlabored on 3L NC. Cpap at night. Up to bathroom independently. Voiding without difficulty. Tolerating diet. No acute events. No needs id or verbalized at this time. Will continue to monitor.
[2024-05-18 20:47] VITALS: BP 88/64
[2024-05-19 04:35] VITALS: BP 92/56
[2024-05-19 05:12] LABS: BASOPHILS ABSOLUTE AUTO 0.05 K/mm3 (0.00-0.23); BASOPHILS PERCENT AUTO 1 % (0-2); EOSINOPHILS PERCENT AUTO 3 % (0-6); Hematocrit 31.8 % (33.0-51.0); Hemoglobin 9.4 g/dL (11.5-16.0); IMMATURE GRAN ABSOLUTE AUTO 0.03 K/mm3 (0.00-0.10); IMMATURE GRAN PERCENT AUTO 0 % (0-1); LYMPHOCYTES ABSOLUTE AUTO 1.32 K/mm3 (0.84-5.20); LYMPHOCYTES PERCENT AUTO 18 % (21-46); MONOCYTES ABSOLUTE AUTO 0.97 K/mm3 (0.16-1.47); MONOCYTES PERCENT AUTO 13 % (4-13); Mean Corpuscular HGB 23.4 pg (26.0-34.0); Mean Corpuscular HGB Conc 29.6 g/dL (31.5-36.5); Mean Corpuscular Volume 79 fL (80-100); Mean Platelet Volume 8.8 fL (9.1-12.4); NEUTROPHILS ABSOLUTE AUTO 4.71 K/mm3 (1.96-9.15); NEUTROPHILS PERCENT AUTO 65 % (41-73); Platelet Count 420 K/mm3 (150-400); RDW Standard Deviation 60.9 fL (35.1-46.3); Red Blood Cell Count 4.01 M/mm3 (3.80-5.20); White Blood Cell Count 7.28 K/mm3 (4.00-11.30)
[2024-05-19 05:33] LABS: Albumin, Blood 3.1 g/dL (3.4-5.0); Albumin/Globulin Ratio 0.8 (0.8-1.8); Bilirubin, Total 0.3 mg/dL (0.1-1.0); Bun/Creatinine Ratio 26.5 (12.0-20.0); Calcium, Blood 8.5 mg/dL (8.5-10.1); Creatinine, Blood 1.02 mg/dL (0.40-1.00); Potassium, Blood 4.5 mmol/L (3.5-5.5); Total Protein, Blood 7.1 g/dL (6.4-8.2)
--- NOTE | 2024-05-19 05:53 | NUR ---
1915 Assumed care of pt, bedside report completed. Shift plan of care reviewed with pt, all questions answered. Pt with uneventful shift, appears to have slept well and denies pain. O2 1-2 lpm via NC able to maintain O2 Sat above 94%. Lung sounds dim throughout, resp rate regular. Up in room ad denis, pt progressing to baseline. Please see full assessment for additional details. No further complaints or concerns at this time, will continue to monitor.
[2024-05-19 07:42] VITALS: BP 99/62
[2024-05-19] MEDS ORDERED: FAMO20 PO (14:26)
[2024-05-19] MEDS ORDERED: FERSU300 PO (14:27)
[2024-05-19] MEDS ORDERED: MIDO5 PO (14:27)
--- NOTE | 2024-05-19 17:40 | NUR ---
PT DISCHARGED HOME. ALERT AND ORIENTED, R/A ABLE TO MAKE NEEDS KNONW. DISCHARGE INSTRUCTIONS DISCUSSED WITH PT. EMPHASIZED IMPORTANCE OF TAKING MEDICATIONS PRESCRIBED AND FOLLOW UP WITH PCP CONCERNING [facility]. PT VERBALIZED UNDERSTANDING.
== END 2024-05-19 16:28 | disposition home or self-care (01) | DRG 291 ==
LOC: ER 08:16 → MEDS 14:27 → ENPENDDIS 05-19 13:52 → MEDS 05-19 16:28
PROVIDERS: Physician Assistant; ADMIT Family Medicine
PROC: 5A09357 Assistance with Respiratory Ventilation, Less than 24 Consecutive Hours, Continuous Positive Airway Pressure (ICD-10-PCS; principal; 2024-05-16)
DX: I11.0 Hypertensive heart disease with heart failure (principal); J96.01 Acute respiratory failure with hypoxia; I50.9 Heart failure, unspecified; J44.9 Chronic obstructive pulmonary disease, unspecified; K59.00 Constipation, unspecified; F15.10 Other stimulant abuse, uncomplicated; E03.9 Hypothyroidism, unspecified; D64.9 Anemia, unspecified; K21.9 Gastro-esophageal reflux disease without esophagitis; F17.210 Nicotine dependence, cigarettes, uncomplicated; J84.10 Pulmonary fibrosis, unspecified; I34.0 Nonrheumatic mitral (valve) insufficiency; E78.5 Hyperlipidemia, unspecified; G47.33 Obstructive sleep apnea (adult) (pediatric); Z88.8 Allergy status to other drugs, medicaments and biological substances; Z88.2 Allergy status to sulfonamides; Z91.040 Latex allergy status; Z79.890 Hormone replacement therapy; Z79.51 Long term (current) use of inhaled steroids; Z79.82 Long term (current) use of aspirin; Z79.899 Other long term (current) drug therapy; Z87.19 Personal history of other diseases of the digestive system; Z90.49 Acquired absence of other specified parts of digestive tract; Z98.890 Other specified postprocedural states; Z90.710 Acquired absence of both cervix and uterus; Z79.01 Long term (current) use of anticoagulants; Z91.148 Patient's other noncompliance with medication regimen for other reason
CPT/HCPCS: 0241U; 36415; 71045; 71046; 74177; 80053; 81001; 83690; 83735; 83880; 84484; 85025; 93005; 93010; 94640; 94644; 94660; 94664; 94760; 94761; 94762; 96374-59; 96375; 97110; 97162; 97530; 99285-25; A9270; J1650; J1885; J1940; J2405; Q9967